=== PATIENT | female | born 1995 | race Caucasian/White ===

== ENCOUNTER 2019-08-03 20:44 | Emergency (ER) | payer SELFPAY ==
--- OUTSIDE RECORDS SUMMARY | 2019-08-03 20:46 | XMS REPORT | Summary of Care ---
Author Author [facility] - Health Organization [facility] Address Unknown Phone Unavailable Care Team Providers Care Bug Trimmer Name Role Phone Catherine Koch MSN PCP Reason for Visit * Reason Comments [employer] Exam Encounter Details Care Team Description Date Type Department Catherine Koch, MSN [address] [place] [address] Family planning counseling (Primary Dx); Well woman exam without gynecological exam; Screening examination for venereal disease; Dysuria; examination or test, negative result; Anxiety; Dysmenorrhea; Simple obesity 01/06/2019 Office Visit [facility] [address] [place] [address] Allergies No Known Allergiesdocumented as of this encounter (statuses as of 01/09/2019) Medications End Date Status Medication Sig Dispensed Refills Start Date Active Nitrofurantoin&Nit. Take 1 20 capsule 0 Macrocryst (MACROBID) 100 capsule by 9 mg capsuleIndications: mouth 2 (two) Dysuria times daily. 01/06/2019 Discontinued Nitrofurantoin&Nit. Take 1 20 capsule 0 Macrocryst (MACROBID) 100 capsule by 9 mg capsuleIndications: mouth 2 (two) Dysuria times daily for 10 days. 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 Never 01/06/2019 How many drinks containing alcohol do you have on Not asked a typical day when you are drinking? How often do you have six or more drinks on one Not asked occasion? Sex Assigned at Date Recorded Not on file Industry Job Start Date Occupation Not on file Not on file Not on file Travel End Travel History Travel Start No recent travel history available. documented as of this encounter Last Filed Vital Signs Reading Time Taken Comments Vital Sign 105/76 01/06/2019 9:04 AM CDT Blood Pressure 75 01/06/2019 9:04 AM CDT Pulse 36.2 C (97.1 F) 01/06/2019 9:04 AM CDT Temperature 18 01/06/2019 9:04 AM CDT Respiratory Rate - - Oxygen Saturation - - Inhaled Oxygen Concentration 79.8 kg (176 lb) 01/06/2019 9:04 AM CDT Weight 162.6 cm (5' 4") 01/06/2019 9:04 AM CDT Height 30.21 01/06/2019 9:04 AM CDT Body Mass Index documented in this encounter Patient Instructions * Patient Instructions* Catherine Koch MSN - 01/06/2019 8:15 AM CDT Wincher packet documented in this encounter Progress Notes * Catherine Koch MSN - 01/06/2019 8:15 AM CDT Chief complaint: Chief Complaint Patient presents with [employer] Exam [employer] Exam Patient is here for well woman visit and contraceptive management. Primary sympt oms comment: dysmenorrhea. This is a recurrent problem. The current episode star trinity more than 1 year ago. The problem has been unchanged. The pain is moderate. The problem affects both sides. She is not (Ectopic resulting in surgical intervention). She wears cotton underwear. Associated symptoms incl ude abdominal pain. Associated symptoms comments: R/t surgery . She has tried NSAIDs and oral narcotics for the symptoms. The treatment provid ed significant relief. It is unknown whether or not her partner has an STD. She uses abstinence (Undecided on BCM.) for contraception. Her menstrual history has been regular. Her past medical history is significant for an ectopic . Patient reports not sexually active. Pt denies human trafficking, current or past physical, sexual, or emotional abus e. Histories OB History Para Term AB Living 2 2 0 SAB TAB Ectopic Multiple Live Births 0 1 1 # Outcome Date GA Lbr Rodriguez/2nd Weight Sex Delivery Anes PTL Lv 2 Ectopic 1 TAB Past Medical History: Diagnosis Date Anxiety Dysmenorrhea 01/09/2019 Family History Problem Relation Age of Onset Arthritis Maternal Grandmother Cancer Maternal Grandmother High cholesterol Maternal Grandmother Diabetes Paternal Grandmother Cancer Paternal Grandfather Asthma NoFHx defects NoFHx Breast Cancer NoFHx Colon Cancer NoFHx Ovarian Cancer NoFHx Uterine Cancer NoFHx Depression NoFHx Genetic NoFHx Heart NoFHx Hypertension NoFHx Mental retardation NoFHx Neurological NoFHx Osteoporosis NoFHx Psychiatry NoFHx Other - see comments NoFHx Family Status Relation Name Status MGMo (Not Specified) Lung and throat PGMo (Not Specified) PGFa (Not Specified) lung and throat NoFHx (Not Specified) Past Surgical History: Procedure Laterality Date OTHER 12/31/2018 One tube was removed due to tubal Social History Socioeconomic History Marital status: Single Spouse name: Not on file Number of children: Not on file Years of education: Not on file Highest education level: Not on file Occupational History Not on file Social Needs Financial resource strain: Not on file Food insecurity: Worry: Not on file Inability: Not on file Transportation needs: Medical: Not on file Non-medical: Not on file Tobacco Use Smoking status: Never Smoker Smokeless tobacco: Never Used Substance and Sexual Activity Alcohol use: Never Frequency: Never Drug use: Never Sexual activity: Yes Partners: Male control/protection: Condom Lifestyle Physical activity: Days per week: Not on file Minutes per session: Not on file Stress: Not on file Relationships Social connections: Talks on phone: Not on file Gets together: Not on file Attends anabaptism service: Not on file Active member of club or organization: Not on file Attends meetings of clubs or organizations: Not on file Relationship status: Not on file Intimate partner violence: Fear of current or ex partner: Not on file Emotionally abused: Not on file Physically abused: Not on file Forced sexual activity: Not on file Other Topics Concern Not on file Social History Narrative Patient denies current or past Physical, sexual or emotional abuse, human traff icking. Social History Substance and Sexual Activity Sexual Activity Yes Partners: Male control/protection: Condom Labs No results found for any previous visit. Radiology No new radiology. Allergies Rosanne has No Known Allergies. Medications Rosanne has a current medication list which includes the following prescription(s ): nitrofurantoin&nit. macrocryst. Review of Systems Constitutional: Negative. HENT: Negative. Eyes: Negative. Respiratory: Negative. Breasts: Negative. Cardiovascular: Negative. Gastrointestinal: Positive for abdominal pain. Genitourinary: Positive for menstrual problem. Musculoskeletal: Negative. Skin: Negative. Neurological: Negative. Psychiatric/Behavioral: Negative. Endocrine: Endocrine negative BP 105/76 | Pulse 75 | Temp 36.2 C (97.1 F) (Oral) | Resp 18 | Ht 5' 4" (1.626 m) | Wt 176 lb (79.8 kg) | LMP 12/02/2018 | BMI 30.21 kg/m Pregravid BMI: Could not be calculated Physical Exam Vitals reviewed. Constitutional: She is oriented to person, place, and time. She appears well-dev eloped, well-nourished and well-groomed. Neck: No tenderness and no mass. No thyroid nodules and no thyromegaly palpated. Cardiovascular: Regular rate and rhythm. No gallop, no friction rub and no murmu r auscultated. No peripheral edema present. Pulmonary/Chest: Breath sounds clear to auscultation. Normal inspiratory effort. Abdominal: Abdomen is soft. No mass palpated. No tenderness present. There is no rigidity and no guarding. Neuro/Psychiatric: She has a normal mood and affect. She is oriented to person, place, and time. Skin: Skin normal. No lesion, no rash and no ulceration present. Genitourinary Comments: Pelvic exam deferred r/t surgery Breast: Right breast exhibits no mass, no nipple discharge and no tenderness. Le ft breast exhibits no mass, no nipple discharge and no tenderness. Breasts are s ymmetrical. Normal left breast and normal right breast Assessment/Plan Family planning counseling (primary encounter diagnosis) Comment: Undecided Plan: RTC for BCM Well woman exam without gynecological exam Comment: WWE Plan: CBC WITH DIFF, RUBELLA SCREEN IGG, HIV 1/2 AG-AB WITH REFLEX, GALV ONLY - SYPHILIS IGG/IGM, GLYCOSYLATED HEMOGLOBIN (A1C), GC & CHLAMYDIA AMPLIFIED ASSAY, URINE CULTURE, CBC WITH DIFFERENTIAL RTC for pap & PRN Screening examination for venereal disease Comment: Desires Plan: HIV 1/2 AG-AB WITH REFLEX, GALV ONLY - SYPHILIS IGG/IGM, GC & CHLAMYDIA AMPLIFIED ASSAY Dysuria Comment: Reports sx Plan: URINE CULTURE, Nitrofurantoin&Nit. Macrocryst (MACROBID) 100 mg capsule, DISCONTINUED: Nitrofurantoin&Nit. Macrocryst (MACROBID) 100 mg capsule examination or test, negative result Comment: UPT - Plan: POCT TEST Anxiety Comment: See hx. Stable now Plan: F/U PRN Dysmenorrhea Comment: Reports sx Plan: Ibuprofen 600 mg po q 6 hrs prn pain Simple obesity Comment: The patient is asked to make an attempt to improve diet and exercise pa tterns to aid in medical management of this problem. Plan: Educational material given. Zika travel precautions and need for mosquito repellant discussed Discussed treatment options. Medications as ordered. Reviewed patient instructions and provided printed copy. This visit did not involve counseling and coordination that comprised more than 50% of the visit time. Catherine Koch, RNC, NP * Dania Renee LVN - 01/06/2019 8:15 AM CDT Patient in clinic for WWE. Patient reports desires to get healthy to get pregnan t. Pt had an ectopic 12/31/2018, Pt states having problems passing uri ne after the surgery. Currently using condoms method. Last had sex 12/01/2018. Last Tdap and PPD in 0 01/2018, Pt states she got the HPV vaccines. Patient reports this is her first WWE + Pap. Pt denies current or past physical, sexual, or emotional abuse, human traffickin g. Desires std testing documented in this encounter Plan of Treatment Care Team Description Date Type Specialty HeroCatherine paredes, MSN [address], [place] [id number] 04/07/2019 Office Visit [facility] Health Maintenance Due Date Last Done Comments INFLUENZA VACCINE 01/30/2019 PAP SMEAR 07/12/2019 Postponed from 2015 (Patient Ill Today) CHLAMYDIA SCREENING 01/07/2020 01/06/2019 VARICELLA VACCINES (1 of 01/07/2020 Postponed from 2007 2 - 13+ 2-dose series) (Insurance / Financial) DTaP,Tdap,and Td Vaccines 02/15/2028 02/14/2018 (2 - Td) HPV VACCINES Completed 10/30/2008, 07/30/2008, 06/01/2008 PNEUMOCOCCAL 0-64 YEARS Aged Out No longer eligible based COMBINED SERIES on patient's age to complete this topic documented as of this encounter Procedures Comments Procedure Name Priority Date/Time Associated Diagnosis GC & CHLAMYDIA AMPLIFIED Routine 01/06/2019 Screening examination for ASSAY 10:55 AM CDT venereal disease Well woman exam without gynecological exam URINE CULTURE Routine 01/06/2019 Dysuria 10:55 AM CDT Well woman exam without gynecological exam GALV ONLY - SYPHILIS Routine 01/06/2019 Screening examination for IGG/IGM 10:54 AM CDT venereal disease Well woman exam without gynecological exam HIV 1/2 AG-AB WITH REFLEX Routine 01/06/2019 Screening examination for 10:54 AM CDT venereal disease Well woman exam without gynecological exam CBC WITH DIFFERENTIAL Routine 01/06/2019 Well woman exam without 10:54 AM CDT gynecological exam RUBELLA SCREEN IGG Routine 01/06/2019 Well woman exam without 10:54 AM CDT gynecological exam GLYCOSYLATED HEMOGLOBIN Routine 01/06/2019 Well woman exam without (A1C) 10:54 AM CDT gynecological exam CBC WITH DIFF Routine 01/06/2019 Well woman exam without 10:54 AM CDT gynecological exam POCT TEST Routine 01/06/2019 examination or 10:25 AM CDT test, negative result documented in this encounter Results * URINE CULTURE (01/06/2019 10:55 AM CDT) URINE CULTURE ESCHERICHIA COLI [facility] Specimen Urine - URINE, CLEAN CATCH Antibiotic Method Susceptibility Organism Amoxacillin/Clavulanic acid SUSCEPTIBILITY TESTING >=32: Resistant Escherichia coli Ampicillin SUSCEPTIBILITY TESTING >=32: Resistant Escherichia coli Ampicillin/Sulbactam SUSCEPTIBILITY TESTING 16: Intermediate Escherichia coli Cefazolin SUSCEPTIBILITY TESTING 8: Susceptible Escherichia coli Ceftriaxone SUSCEPTIBILITY TESTING <=1: Susceptible Escherichia coli Ertapenem SUSCEPTIBILITY TESTING <=0.5: Susceptible Escherichia coli Gentamicin SUSCEPTIBILITY TESTING <=1: Susceptible Escherichia coli Levofloxacin SUSCEPTIBILITY TESTING <=0.12: Susceptible Escherichia coli Nitrofurantoin SUSCEPTIBILITY TESTING <=16: Susceptible Escherichia coli Piperacillin/Tazobactam SUSCEPTIBILITY TESTING <=4: Susceptible Escherichia coli Trimethoprim/Sulfamethoxazole SUSCEPTIBILITY TESTING <=20: Susceptible Escherichia coli Comment: Nitrofurantoin is not recommended for use in treating pyelonephritis or systemic disease. Performing Organization Address City/[facility]/Zipcode Phone Number [facility] CLIA: [id number], [address] [place] [address] [facility] * GC & CHLAMYDIA AMPLIFIED ASSAY (01/06/2019 10:55 AM CDT) Pathologist [facility] C. trachomatis CHLAMYDIA TRACHOMATIS DNA (A) Negative [facility] Nucleic Acid SERVICES N. gonorrhoeae NEGATIVE Negative [facility] Nucleic Acid SERVICES Specimen Urine - URINE, UNSPECIFIED SOURCE Performing Organization Address City/State/Zipcode Phone Number [facility] CLIA: [id number], [address] [place] [phone] [facility] * CBC WITH DIFFERENTIAL (01/06/2019 10:54 AM CDT) WBC 6.77 4.30 - 11.10 [facility] 10*3/L SERVICES RBC 3.76 (L) 3.93 - 5.25 10*6/L [facility] HGB 11.0 (L) 11.6 - 15.0 g/dL [facility] HCT 35.6 (L) 35.7 - 45.2 % [facility] MCV 94.7 80.6 - 95.5 fL [facility] MCH 29.3 25.9 - 32.8 pg [facility] MCHC 30.9 (L) 31.6 - 35.1 g/dL [facility] RDW-SD 43.6 39.0 - 49.9 fL [facility] RDW-CV 12.5 12.0 - 15.5 % [facility] PLT 303 166 - 358 10*3/L [facility] MPV 10.7 9.5 - 12.9 fL [facility] NRBC/100 WBC 0.0 0.0 - 10.0 /100 WBCs [facility] NRBC x10^3 <0.01 10*3/L [facility] GRAN MAT (NEUT) 66.3 % [facility] % SERVICES IMM GRAN % 0.30 % [facility] LYMPH % 23.5 % [facility] MONO % 5.9 % [facility] EOS % 3.1 % [facility] BASO % 0.9 % [facility] GRAN MAT 4.49 1.88 - 7.09 10*3/uL [facility] x10^3(ANC) SERVICES IMM GRAN x10^3 <0.03 0.00 - 0.06 10*3/uL [facility] LYMPH x10^3 1.59 1.32 - 3.29 10*3/uL [facility] MONO x10^3 0.40 0.33 - 0.92 10*3/uL [facility] EOS x10^3 0.21 0.03 - 0.39 10*3/uL [facility] BASO x10^3 0.06 0.01 - 0.07 10*3/uL [facility] Specimen Blood - ARM, LEFT Performing Organization Address City/State/Zipcode Phone Number [facility] CLIA: [id number], [address] [place] [address] [facility] * GLYCOSYLATED HEMOGLOBIN (A1C) (01/06/2019 10:54 AM CDT) HGB A1C 4.6 4.0 - 6.0 % [facility] Specimen Blood - ARM, LEFT Performing Organization Address City/[facility] Phone Number [facility] CLIA: [id number], [address] [place] [phone] [facility] * GALV ONLY - SYPHILIS IGG/IGM (01/06/2019 10:54 AM CDT) Syphilis Non-reactive Non-reactive [facility] IgG/IgM SERVICES Specimen Blood - ARM, LEFT Narrative Performed At Non-reactive - No serologic evidence of T. pallidum infection. Cannot exclude [facility] incubating or early syphilis. Submit a second specimen in 2-4 weeks if syphilis SERVICES is clinically suspected. Equivocal - Further testing to follow. Reactive - Further testing to follow. Performing Organization Address [facility] Phone Number [facility] CLIA: [id number], [address] [place] [phone] [facility] * HIV 1/2 AG-AB WITH REFLEX (01/06/2019 10:54 AM CDT) HIV 1/2 Ag-Ab Negative Negative [facility] with Reflex SERVICES HIV 0.07 [facility] Semi-quantitati SERVICES ve Specimen Blood - ARM, LEFT Narrative Performed At Non-reactive for HIV-1 antigen and HIV-1/HIV-2 antibodies.No laboratory [facility] evidence of HIV infection.Repeat in 2-4 weeks if acute HIV infection is SERVICES suspected. Performing Organization Address [facility] Phone Number [facility] CLIA: [id number], [address] [place] [phone] [facility] * RUBELLA SCREEN IGG (01/06/2019 10:54 AM CDT) Rubella screen Positive Negative [facility] IgG SERVICES Specimen Blood - ARM, LEFT Narrative Performed At Positive - Indicates the patient was exposed to Rubella through infection or [facility] vaccination. SERVICES Negative - Indicates the patient could be susceptible to Rubella infection. Equivocal - A second specimen should be sent. Performing Organization Address City/State/Zipcode Phone Number [facility] CLIA: [id number], [address] [place] [phone] [facility] * POCT TEST (01/06/2019 10:25 AM CDT) POCT PREG Negative On board Yes controls acceptable with C Line POCT PREG LOT # POCT PREG TEST DATE Specimen Urine - URINE, CLEAN CATCH documented in this encounter Visit Diagnoses Diagnosis Family planning counseling - Primary Other general counseling and advice for contraceptive management Well woman exam without gynecological exam Routine general medical examination at a health care facility Screening examination for venereal disease Dysuria examination or test, negative result Anxiety Anxiety state, unspecified Dysmenorrhea Simple obesity Obesity, unspecified documented in this encounter Insurance Type Payer Benefit Subscriber ID Effective Phone Address Plan / Dates Group Medicaid [facility] [place] [facility] xxxxxxxxx 2018-P [phone] [address] [place] [address] documented as of this encounter
--- OUTSIDE RECORDS SUMMARY | 2019-08-03 20:46 | XMS REPORT ---
[facility] Address Unknown Phone Unavailable Care Team Providers Care Supervisor Counseling And Guidance Name Role Phone Unavailable Unavailable Payers Payer Name Policy Type Policy Number Effective Date Expiration Date Problems This patient has no known problems. Allergies, Adverse Reactions, Alerts Allergy Name Allergy Type Status Severity Reaction(s) Onset Date Inactive Date Treating Clinician Comments No Known Allergies DA Active U 2017-03-05 00:00:00 Medications This patient has no known medications. Results Test Description Test Time Test Comments Text Results Atomic Results Result Comments Manual Diff 2019-01-01 13:44:03 Segs Man (test code=Segs Man) 76 % Lymph Man (test code=Lymph Man) 18 % Monocyte Man (test code=Monocyte Man) 5 % Eos Man (test code=Eos Man) 1 % Basophil Man (test code=Basophil Man) 0 % Neut Man Abs (test code=Neut Man Abs) 7.6 2.7-7.3 Lymph Man Abs (test code=Lymph Man Abs) 1.8 0.8-3.5 [place] Man Abs (test code=[place] Man Abs) 0.5 0.3-0.9 Eos Man Abs (test code=Eos Man Abs) 0.1 0.0-0.3 Baso Man Abs (test code=Baso Man Abs) 0.0 0.0-0.1 RBC Morph (test code=RBC Morph) As Indicated Normal Anisocyte (test code=Anisocyte) 1+ Plt Estimation (test code=Plt Estimation) Normal Normal Complete Blood Count with Man [id number] 12:42:23* Test Item Value Reference Range Comments WBC (test code=WBC) 10.0 x10 4.8-10.8 RBC (test code=RBC) 3.47 x10 4.20-5.50 Hgb (test code=Hgb) 10.5 g/dL 12.0-16.0 Hct (test code=Hct) 31.3 % 35.0-47.0 MCV (test code=MCV) 90.1 fL 80.0-95.0 MCH (test code=MCH) 30.4 pg 26.0-32.0 MCHC (test code=MCHC) 33.7 g/dL 31.0-36.0 RDW (test code=RDW) 13.3 % 11.5-14.5 Platelets (test code=Platelets) 226 x10 140-440 MPV (test code=MPV) 8.9 fL 7.5-11.2 US OB [id number] 01:41:47Patient: SCOTT ROSSI Date/Time01/01/2019 01:07 CDTReason for Exampelvic pain;Other (please specify)ReportOrdering physician: Alycia BarbaINDICATION: , lower pelvic pain with vaginal bleeding, beta hCG 391COMPARISON: NoneTECHNIQUE: Grayscale and Doppler images of the pelvis were performed via an endovaginal approach.FINDINGS: No intrauterine gestation is appreciated. The endometrium measures 5 mm. The uterus measures 8.1 x 3.8 x 4.5 cm. The right ovary measures 3.6 x 2.1 x 3.0 cm and the left ovary measures 4.2 x 2.9 x 3.0 cm. There is normal color-flow in the ovaries bilaterally, with normal vascular waveforms. There is a large amount of hemorrhagic fluid in the right adnexa and posterior cul-de-sac.IMPRESSION:No intrauterine gestation. Visualization would not typically be expected at a beta hCG of 391.Large amount of hemorrhagic free fluid in the right adnexa and posterior cul-de-sac. Ectopic gestation cannot be excluded, but this could also be seen in the setting of a ruptured hemorrhagic cyst.RL: [id number]: [id number] findings were discussed with Dr. Rowland, who expressed understanding, on 01/01/2019 at 0 147 Final Dictated by: Contributor_system, PSCRIBE_CTZDictated DT/TM: 01/01/2019 1 :50 amSigned by: MD Gregg, Stephani GSigned (Electronic Signature): 2018 1:41 am2C [id number] 01:33:36* Test Item Value Reference Range Comments Methodology (test code=Methodology) Ortho-Vision(OV) SC1 (test code=SC1) 0 SC2 (test code=SC2) 0 Antibody Screen (2C) (test code=Antibody Screen (2C)) Negative ABSC [id number] 01:16:04* Test Item Value Reference Range Comments Previous History (test code=Previous History) No Prev History BBID (test code=BBID) [id number] Methodology (test code=Methodology) Ortho-Vision(OV) Anti-A (test code=Anti-A) 0 Anti-B (test code=Anti-B) 0 Anti-D (test code=Anti-D) 4+ DCon (test code=DCon) 0 A1 (test code=A1) 4+ B cells (test code=B cells) 4+ ABORh (test code=ABORh) O POS Automated [id number] 23:01:49* Test Item Value Reference Range Comments Neutro Auto (test code=Neutro Auto) 78.7 % Lymph Auto (test code=Lymph Auto) 15.0 % [place] Auto (test code=[place] Auto) 4.8 % Eos, Auto (test code=Eos, Auto) 0.9 % Basophil Auto (test code=Basophil Auto) 0.6 % Neutro Absolute (test code=Neutro Absolute) 10.7 x10 2.7-7.3 Lymph Absolute (test code=Lymph Absolute) 2.0 x10 0.8-3.5 [place] Absolute (test code=[place] Absolute) 0.7 x10 0.3-0.9 Eos Absolute (test code=Eos Absolute) 0.1 x10 0.0-0.3 Baso Absolute (test code=Baso Absolute) 0.1 x10 0.0-0.1 Complete Blood Count with [id number] 23:01:48* Test Item Value Reference Range Comments WBC (test code=WBC) 13.7 x10 4.8-10.8 RBC (test code=RBC) 3.90 x10 4.20-5.50 Hgb (test code=Hgb) 11.7 g/dL 12.0-16.0 Hct (test code=Hct) 34.9 % 35.0-47.0 MCV (test code=MCV) 89.5 fL 80.0-95.0 RDW (test code=RDW) 13.6 % 11.5-14.5 MCHC (test code=MCHC) 33.4 g/dL 31.0-36.0 MCH (test code=MCH) 29.9 pg 26.0-32.0 Platelets (test code=Platelets) 243 x10 140-440 MPV (test code=MPV) 8.6 fL 7.5-11.2 Slide Review (test code=Slide Review) Auto Result created by GL_SET_SLIDE_REVIEW_AUTO Beta HCG [id number] 22:43:15* Test Item Value Reference Range Comments HCG, Beta Quantitative (test code=HCG, Beta Quantitative) 391 mIU/L 0-5 Gestational Age Approximate HCG (mIU/ml)Negative <50.2 weeks 5-50 1-2 weeks 50-5002-3 weeks 100-48427-3 weeks 500-10,0004-5 weeks 1,000-50,0005-6 weeks 10,000-100,0006-8 weeks 15,000-200,0002-3 months 10,000- 100,000< 40 yrs 0-5> 40 yrs 3-9Rizf-rzmjmnhodt 0-11 POC Urine [id number] 21:54:54* Test Item Value Reference Range Comments Urine Preg POC (test code=Urine Preg POC) Positive Negative Test results should be confirmed using a serum sample prior to the performance of any critical medical procedure. Internal QC (test code=Internal QC) Acceptable Acceptable Urinalysis with Culture, if [id number] 21:52:12* Test Item Value Reference Range Comments UA Color (test code=UA Color) Yellow Yellow UA Appear (test code=UA Appear) Clear Clear UA pH (test code=UA pH) 5.5 UA Spec Grav (test code=UA Spec Grav) 1.030 SGU 1.005-1.030 UA Glucose (test code=UA Glucose) Negative Negative UA Bili (test code=UA Bili) Negative Negative UA Ketones (test code=UA Ketones) Negative Negative UA Blood (test code=UA Blood) 2+ Negative UA Protein (test code=UA Protein) Negative Negative UA Urobilinogen (test code=UA Urobilinogen) 1.0 EU/dL >0.2 UA Nitrite (test code=UA Nitrite) Negative Negative UA Leuk Est (test code=UA Leuk Est) Negative Negative UA Micro Ind? (test code=UA Micro Ind?) Indicated Not Indicated Result created by rule GL_SET_UA_MICRO_IND Urinalysis [id number] 21:52:12* Test Item Value Reference Range Comments UA WBC (test code=UA WBC) 0-5 /HPF 0-5 UA RBC (test code=UA RBC) 0-4 /HPF 0-4 UA Bacteria (test code=UA Bacteria) 1+ /HPF Negative UA Squam Epithelial (test code=UA Squam Epithelial) 74-200 /LPF 0-20 UA Hyal Cast (test code=UA Hyal Cast) 1-6 /LPF 1-6
--- OUTSIDE RECORDS SUMMARY | 2019-08-03 20:46 | XMS REPORT | Summary of Care ---
Author Author [facility] Organization [facility] Address Unknown Phone Unavailable Care Team Providers Care Asian Art Curator Name Role Phone Adelia Sen PCP Reason for Visit * Reason Comments Other Encounter Details Care Team Description Date Type Department Adelia Sen WHNP [address] [address] Surveillance of previously prescribed contraceptive pill (Primary Dx); Screen for STD (sexually transmitted disease); Chlamydia trachomatis infection of lower genitourinary sites; Dysuria; Cervical smear, as part of routine gynecological examination 07/04/2019 Office Visit [place] [address] [place] [address] Allergies No Known Allergiesdocumented as of this encounter (statuses as of 07/06/2019) Medications End Date Status Medication Sig Dispensed Refills Start Date Active norgestimate-ethinyl Take 1 tablet 4 Package 0 estradiol 0.18/0.215/0.25 by mouth 0 mg-25 mcg daily. tabletIndications: Surveillance of previously prescribed contraceptive pill 07/04/2019 Discontinued Nitrofurantoin&Nit. Take 1 20 capsule 0 Macrocryst (MACROBID) 100 capsule by 9 mg capsuleIndications: mouth 2 (two) Dysuria times daily. documented as of this encounter (statuses as of 07/06/2019) Active Problems Problem Noted Date Chlamydia trachomatis infection of lower genitourinary sites 01/09/2019 Anxiety 01/09/2019 Dysmenorrhea 01/09/2019 Simple obesity 01/09/2019 documented as of this encounter (statuses as of 07/06/2019) Immunizations Name Administration Dates Next Due HPV [...] Signs Reading Time Taken Comments Vital Sign 124/79 07/04/2019 8:41 AM TOOL MACHINE SETUP OPERATOR Blood Pressure 68 07/04/2019 8:41 AM TOOL MACHINE SETUP OPERATOR Pulse 37 C (98.6 F) 07/04/2019 8:41 AM TOOL MACHINE SETUP OPERATOR Temperature 16 07/04/2019 8:41 AM TOOL MACHINE SETUP OPERATOR Respiratory Rate - - Oxygen Saturation - - Inhaled Oxygen Concentration 83.5 kg (184 lb) 07/04/2019 8:41 AM TOOL MACHINE SETUP OPERATOR Weight 152.4 cm (5') 07/04/2019 8:41 AM TOOL MACHINE SETUP OPERATOR Height 35.94 07/04/2019 8:41 AM TOOL MACHINE SETUP OPERATOR Body Mass Index documented in this encounter Patient Instructions * Patient Instructions* Antonio Alicia LVN - 07/04/2019 8:15 AM TOOL MACHINE SETUP OPERATOR How Control Works control prevents by preventing conception. Some methods prevent an egg from maturing. Some keep the sperm and egg from meeting. And some methods work in both ways. Preventing ovulation Certain hormones help prevent an egg from maturing and being released. Hormone m ethods include: control pills Skin patches Contraceptive vaginal rings Injections Preventing sperm and egg from meeting Methods that prevent the sperm and egg from joining include: Barrier methods, such as the condom, the diaphragm, and the cervical cap Spermicide The IUD (intrauterine device) Sterilization Natural family planning Some types of hormone methods Thiago hagan reviewed this educational content on 07/30/201619996345-8416 [employer]. [address] [place] [address] 1367 7. All rights reserved. This information is not intended as a substitute for pro fessional medical care. Always follow your healthcare professional's instruction s. Control: The Pill control pills contain hormones that help prevent . The pills are prescribed by your healthcare provider. There are many types of control pi lls available. If you have side effects from one type of pill, tell your healthc are provider. He or she may be able to prescribe a pill that works better for yo u. rates Talk to your healthcare provider about the effectiveness of this control m ethod. Using the pill Take one pill daily. Take it at around the same time each day. Follow your healthcare providers guidelines on when to start your first pa ck of pills. You may need to use another form of control for a week or mor e after you start. Know what to do if you forget to take a pill. (Consult your healthcare provid er or check the package.) If you miss more than one pill, you may need to use a backup method of control for a week or more. Pros Low rate No interruption to sex Easy to use Can help make periods more regular May lower your risk of ovarian cysts and certain cancers May decrease menstrual cramps, menstrual flow, and acne Cons Does not protect against sexually transmittedinfection (STIs) Requires taking a pill on time each day May not work as well when taken with certain other medicines (check with your pharmacist) May cause side effects such as nausea, irregular bleeding, headaches, breast tenderness, fatigue, or mood changes (these often go away within 3 months) May increase the risk of blood clots,heart attack, and stroke The pill may not be for you The pill may not be for you if: You are a smoker and over age 35 You havehigh blood pressureor gallbladder, liver, cerebrovascular or he art disease You have diabetes, migraines, blood clot in the vein or artery, lupus, depres analia, certain lipid disorders, or take medicines that interfere with the pill In these cases, discuss the risks with your healthcare provider. Knowable last reviewed this educational content on 07/30/201619999678-4725 [employer] [address] [place] [address] 5166 7. All rights reserved. This information is not intended as a substitute for pro fessional medical care. Always follow your healthcare professional's instruction s. C ST documented in this encounter Progress Notes * Adelia Sen, NP - 07/04/2019 8:15 AM TOOL MACHINE SETUP OPERATOR Chief complaint: Chief Complaint Patient presents with Other Had chlamydia but did not take meds right did drink after taking Wants to start oc Needs pap BARREL RIFLER Exam Reason for Visit: chlamydia fu. The patient is experiencing no pain. She is not . She wears cotton underwear. She uses oral contraceptives for contracep tion. Her menstrual history has been regular. Her past medical history is signif icant for an STD. There is no history of PID or vaginosis. Patient reports sexua lly active. Histories OB History Para Term AB Living 2 2 0 SAB TAB Ectopic Multiple Live Births 0 1 1 # Outcome Date GA Lbr Rodriguez/2nd Weight Sex Delivery Anes PTL Lv 2 Ectopic 1 TAB Past Medical History: Diagnosis Date Anxiety Dysmenorrhea 01/09/2019 STD (sexually transmitted disease) Family History Problem Relation Age of Onset [...] file Gets together: Not on file Attends anglican service: Not on file Active member of [...] Activity Yes Partners: Male control/protection: Condom Labs Labs are pending. Radiology No new radiology. Allergies Rosanne has No Known Allergies. Medications Rosanne has a current medication list which includes the following prescription(s ): norgestimate-ethinyl estradiol. Review of Systems Constitutional: Negative. Breasts: Negative. Gastrointestinal: Negative. Genitourinary: Negative. Skin: Negative. Neurological: Negative. Psychiatric/Behavioral: Negative. BP 124/79 | Pulse 68 | Temp 37 C (98.6 F) | Resp 16 | Ht 5' (1.524 m) | Wt 184 lb (83.5 kg) | LMP 06/15/2019 | BMI 35.94 kg/m Pregravid BMI: Could not be calculated Physical Exam Vitals reviewed. Constitutional: She is oriented to person, place, and time. She appears well-dev eloped and well-nourished. Pulmonary/Chest: Normal inspiratory effort. Neuro/Psychiatric: She has a normal mood and affect. She is oriented to person, place, and time. Skin: Skin normal. No lesion, no rash and no ulceration present. External genitalia: Normal external genitalia appropriate for age. Normal hair d istribution. No labial lesion. Vagina:No lesion inspected. Normal estrogen effect. Normal support. No abnormal vaginal discharge found. Cervix: Normal cervix. No lesion. No tenderness and no discharge present. Anus/perineum: Normal perineum. Assessment/Plan Surveillance of previously prescribed contraceptive pill (primary encounter zuly gnosis) Comment: candidate for Plan: norgestimate-ethinyl estradiol 0.18/0.215/0.25 mg-25 mcg tablet Screen for STD (sexually transmitted disease) Comment: requested Plan: HIV 1/2 AG-AB WITH REFLEX, [facility] ONLY - SYPHILIS IGG/IGM, GC & CHLAMYDIA AMPLIFIED ASSAY, GC & CHLAMYDIA AMPLIFIED ASSAY, GALV ONLY - SYPHILIS IGG/IGM, HIV 1/2 AG-AB WITH REFLEX Chlamydia trachomatis infection of lower genitourinary sites Comment: Plan: cristine Dysuria Comment: reports Plan: URINE CULTURE Cervical smear, as part of routine gynecological examination Comment: pap today Plan: PAP Smear-Liquid Based, PAP Smear-Liquid Based, LAB ONLY PAP SMEAR-LIQUID BASED, LAB ONLY PAP SMEAR-LIQUID BASED This visit did not involve counseling and coordination that comprised more than 50% of the visit time. MACHINE SETUP OPERATOR * Antonio Alicia LVN - 07/04/2019 8:15 AM TOOL MACHINE SETUP OPERATOR Dispensed 4 pack of Tri Lo Sprintec, Lot [id number], Exp- 05/20, Cont- 878-L Educated patient on importance of dispensing pills properly and when to use a ba ck up method. Discussed the need to use a back up method for 1 month if this is initial dose. Patient to RTC in 3 months for next refill. Patient verbalized understanding and has no questions. C ST * Sonya Seay MA - 07/04/2019 8:15 AM TOOL MACHINE SETUP OPERATOR Patient presents for first pap. LMP 06/15/2019. Last intercourse 2 weeks ago. Is not on any control now. Would like to discuss options. States she was sta rted on RX for chlamydia and UTI but did not take Rx correctly, she completed co urse but skipped a few days as she started back drinking due to depression. Stat es Still has vaginal odor but no discharge. Still has odor in urine. MACHINE SETUP OPERATOR documented in this encounter Plan of Treatment Date/Time Name Type Priority Associated Diagnoses 07/04/2019 9:34 AM TOOL MACHINE SETUP OPERATOR LAB ONLY PAP SMEAR-LIQUID LAB Routine Cervical smear, as part BASED of routine gynecological examination Order Schedule Name Type Priority Associated Diagnoses Expected: 07/05/2019, Expires: 07/05/2020 LAB ONLY PAP SMEAR-LIQUID LAB Routine Cervical smear, as part BASED of routine gynecological examination Health Maintenance Due Date Last Done Comments PAP SMEAR 07/12/2019 Postponed from 2015 (Patient Ill Today) VARICELLA VACCINES (1 of 01/07/2020 Postponed from 1995 2 - 2-dose childhood (Insurance / Financial) series) INFLUENZA VACCINE (#1) 2020 Postponed from 01/30/2019 (Refused) DTaP,Tdap,and Td Vaccines 02/15/2028 02/14/2018 (2 - Td) HPV VACCINES Completed 10/30/2008, 07/30/2008, 06/01/2008 PNEUMOCOCCAL 0-64 YEARS Aged Out No longer eligible based COMBINED SERIES on patient's age to complete this topic documented as of this encounter Procedures Comments Procedure Name Priority Date/Time Associated Diagnosis [facility] ONLY - SYPHILIS Routine 07/04/2019 Screen for STD (sexually IGG/IGM 9:34 AM TOOL MACHINE SETUP OPERATOR transmitted disease) PAP SMEAR-LIQUID BASED-CP Routine 07/04/2019 Cervical smear, as part 9:34 AM TOOL MACHINE SETUP OPERATOR of routine gynecological examination HIV 1/2 AG-AB WITH REFLEX Routine 07/04/2019 Screen for STD (sexually 9:34 AM TOOL MACHINE SETUP OPERATOR transmitted disease) GC & CHLAMYDIA AMPLIFIED Routine 07/04/2019 Screen for STD (sexually ASSAY 9:34 AM TOOL MACHINE SETUP OPERATOR transmitted disease) URINE CULTURE Routine 07/04/2019 Dysuria 9:34 AM TOOL MACHINE SETUP OPERATOR documented in this encounter Results * GC & CHLAMYDIA AMPLIFIED ASSAY (07/04/2019 9:34 AM TOOL MACHINE SETUP OPERATOR) C. trachomatis Negative Negative [facility] Nucleic Acid SERVICES N. gonorrhoeae Negative Negative [facility] Nucleic Acid SERVICES Specimen Swab - CERVIX Performing Organization Address City/State/Zipcode Phone Number [facility] CLIA: [id number], [address] [place] [address] [facility] * PAP Smear-Liquid Based (07/04/2019 9:34 AM TOOL MACHINE SETUP OPERATOR) Specimen Swab - CERVIX Performing Organization Address City/State/Zipcode Phone Number [facility] CLIA: [id number], [address] [place] [phone] [facility] * URINE CULTURE (07/04/2019 9:34 AM TOOL MACHINE SETUP OPERATOR) URINE CULTURE 10,000 - 100,000 CFU/mL mixed [facility] aerobic organisms - suggests SERVICES endogenous microbial contamination Specimen Urine - URINE, CLEAN CATCH Performing Organization Address City/[facility] Phone Number [facility] CLIA: [id number], [address] [place] [phone] [facility] * GAL[facility] ONLY - SYPHILIS IGG/IGM (07/04/2019 9:34 AM TOOL MACHINE SETUP OPERATOR) Syphilis Non-reactive Non-reactive [facility] IgG/IgM SERVICES Specimen Blood - ARM, LEFT Narrative Performed At Non-reactive - No serologic evidence of T. pallidum infection. Cannot exclude [facility] incubating or early syphilis. Submit a second specimen in 2-4 weeks if syphilis SERVICES is clinically suspected. Equivocal - Further testing to follow. Reactive - Further testing to follow. Performing Organization Address [facility] Phone Number [facility] CLIA: [id number], [address] [place] [phone] [facility] * HIV 1/2 AG-AB WITH REFLEX (07/04/2019 9:34 AM TOOL MACHINE SETUP OPERATOR) HIV 1/2 Ag-Ab Negative Negative [facility] with Reflex SERVICES HIV 0.07 [facility] Semi-quantitati SERVICES ve Specimen Blood - ARM, LEFT Narrative Performed At Non-reactive for HIV-1 antigen and HIV-1/HIV-2 antibodies. No laboratory [facility] evidence of HIV infection. Repeat in 2-4 weeks if acute HIV infection is SERVICES suspected. Performing Organization Address City/[facility] Phone Number [facility] CLIA: [id number], [address] [place] [phone] [facility] documented in this encounter Visit Diagnoses Diagnosis Surveillance of previously prescribed contraceptive pill - Primary Screen for STD (sexually transmitted disease) Screening examination for venereal disease Chlamydia trachomatis infection of lower genitourinary sites Dysuria Cervical smear, as part of routine gynecological examination Screening for malignant neoplasm of the cervix documented in this encounter Insurance Type Payer Benefit Subscriber ID Effective Phone Address Plan / Dates Group Medicaid [facility] [place] [facility] xxxxxxxxx 2018-P [phone] [address] [place] [address] documented as of this encounter"
--- OUTSIDE RECORDS SUMMARY | 2019-08-03 20:46 | XMS REPORT | Summary of Care ---
Author Author [facility] - Health Organization [facility] - Health Address Unknown Phone Unavailable Care Team Providers Care Client Service Executive Name Role Phone Catherine Koch MSN PCP Encounter Details Care Team Description Date Type Department Doctor Unassigned, [place] [address] [place] [address] 01/06/2019 Orders Only [facility] [address] [place] [address] Allergies Not on Filedocumented as of this encounter (statuses as of 01/06/2019) Medications Not on filedocumented as of this encounter (statuses as of 01/06/2019) Active Problems Not on filedocumented as of this encounter (statuses as of 01/06/2019) Social History Date Tobacco Use Types Packs/Day Years Used Never Assessed Sex Assigned at Date Recorded Not on file Industry Job Start Date Occupation Not on file Not on file Not on file Travel End Travel History Travel Start No recent travel history available. documented as of this encounter Last Filed Vital Signs Not on filedocumented in this encounter Plan of Treatment Health Maintenance Due Date Last Done Comments VARICELLA VACCINES (1 of 2007 2 - 13+ 2-dose series) HPV VACCINES (1 - Female 2009 3-dose series) CHLAMYDIA SCREENING 2010 DTaP,Tdap,and Td Vaccines 2013 (1 - Tdap) PAP SMEAR 2015 INFLUENZA VACCINE 01/30/2019 PNEUMOCOCCAL 0-64 YEARS Aged Out No longer eligible based COMBINED SERIES on patient's age to complete this topic documented as of this encounter Procedures Comments Procedure Name Priority Date/Time Associated Diagnosis ASSIGNMENT OF BENEFITS Routine 01/06/2019 8:43 AM CDT documented in this encounter Results Not on filedocumented in this encounter Insurance Type Payer Benefit Subscriber ID Effective Phone Address Plan / Dates Group Medicaid [id number] xxxxxxxxx 2018-P [phone] [address] [place] [address] documented as of this encounter
--- OUTSIDE RECORDS SUMMARY | 2019-08-03 20:46 | XMS REPORT | Summary of Care ---
Author Author [facility] - Health Organization [facility] - Health Address Unknown Phone Unavailable Care Team Providers Care Technical Services Rep Name Role Phone Adelia Sen PCP Reason for Visit * Reason Comments Other Encounter Details Care Team Description Date Type Department Adelia Sen [facility] [address] [address] Encounter for surveillance of other contraceptive (Primary Dx); Chlamydia trachomatis infection of lower genitourinary sites 01/12/2019 Office Visit [facility] [address] [place] [address] Allergies No Known Allergiesdocumented as of this encounter (statuses as of 01/12/2019) Medications End Date Status Medication Sig Dispensed Refills Start Date Active Nitrofurantoin&Nit. Take 1 20 capsule 0 Macrocryst (MACROBID) 100 capsule by 9 mg capsuleIndications: mouth 2 (two) Dysuria times daily. 01/12/2019 Active azithromycin (ZITHROMAX) Take 2 2 tablet 0 500 mg tabletIndications: tablets by 9 Chlamydia trachomatis mouth once infection of lower now for 1 genitourinary sites dose. 01/12/2019 Discontinued azithromycin (ZITHROMAX) Take 2 2 tablet 0 500 mg tabletIndications: tablets by 9 Chlamydia trachomatis mouth daily. infection of lower genitourinary sites documented as of this encounter (statuses as of 01/12/2019) Active Problems Problem Noted Date Chlamydia trachomatis infection of lower genitourinary sites 01/09/2019 Anxiety 01/09/2019 Dysmenorrhea 01/09/2019 Simple obesity 01/09/2019 documented as of this encounter (statuses as of 01/12/2019) Immunizations Name Administration Dates Next Due HPV [...] Signs Reading Time Taken Comments Vital Sign 110/61 01/12/2019 10:27 AM CDT Blood Pressure 72 01/12/2019 10:27 AM CDT Pulse 36.9 C (98.4 F) 01/12/2019 10:27 AM CDT Temperature 18 01/12/2019 10:27 AM CDT Respiratory Rate - - Oxygen Saturation - - Inhaled Oxygen Concentration 79.4 kg (175 lb) 01/12/2019 10:27 AM CDT Weight 162.6 cm (5' 4") 01/12/2019 10:27 AM CDT Height 30.04 01/12/2019 10:27 AM CDT Body Mass Index documented in this encounter Progress Notes * Adelia Sen - 01/12/2019 10:15 AM CDT Chief complaint: Chief Complaint Patient presents with Other HPI Here for 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 The patient is experiencing no pain. She is not . She uses abstinence for contraception. Her menstrual history has been regular. Her past medical history is significant for an STD. There is no history of PID or vaginosis. Patient reports not sexually active. Histories OB History Para Term AB [...] file Gets together: Not on file Attends restoration service: Not on file Active member of [...] Activity Yes Partners: Male control/protection: Condom Labs I have reviewed the patient's labs. Radiology No new radiology. Allergies Rosanne has No Known Allergies. Medications Rosanne has a current medication list which includes the following prescription(s ): azithromycin and nitrofurantoin&nit. macrocryst. Review of Systems Constitutional: Negative. Breasts: Negative. Gastrointestinal: Negative. Genitourinary: Negative. Skin: Negative. Neurological: Negative. Psychiatric/Behavioral: Negative. BP 110/61 | Pulse 72 | Temp 36.9 C (98.4 F) (Oral) | Resp 18 | Ht 5' 4" (1.626 m) | Wt 175 lb (79.4 kg) | BMI 30.04 kg/m Pregravid BMI: Could not be calculated Physical Exam Vitals reviewed. Constitutional: She is oriented to person, place, and time. She appears well-dev eloped and well-nourished. Pulmonary/Chest: Normal inspiratory effort. Neuro/Psychiatric: She has a normal mood and affect. She is oriented to person, place, and time. Skin: Skin normal. No lesion, no rash and no ulceration present. Assessment/Plan Encounter for surveillance of other contraceptive (primary encounter diagnosis) Comment: abstinence Plan: rtc prn Chlamydia trachomatis infection of lower genitourinary sites Comment: positive Plan: azithromycin (ZITHROMAX) 500 mg tablet, DISCONTINUED: azithromycin (ZITHROMAX) 500 mg Tablet Rx to pharmacy Safe sex This visit did not involve counseling and coordination that comprised more than 50% of the visit time. documented in this encounter Plan of Treatment Care Team Description Date Type Specialty Catherine Koch, MSN [address] [place] [address] [phone] 04/07/2019 Office Visit OB [facility] Health Maintenance Due Date Last Done Comments [...] this topic documented as of this encounter Results Not on filedocumented in this encounter Visit Diagnoses Diagnosis Encounter for surveillance of other contraceptive - Primary Chlamydia trachomatis infection of lower genitourinary sites documented in this encounter Insurance Type Payer Benefit Subscriber ID Effective Phone Address Plan / Dates Group Medicaid [place]OMEN [facility] xxxxxxxxx 2018-P [phone] [id number] [place] [address] documented as of this encounter
--- OUTSIDE RECORDS SUMMARY | 2019-08-03 20:46 | XMS REPORT | Summary of Care ---
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 Encounter Details Care Team Description Date Type Department Catherine Koch, MSN [address] [place] [address] Family planning counseling (Primary Dx); Well woman exam without gynecological exam; Screening examination for venereal disease; Dysuria; examination or test, negative result; Anxiety; Dysmenorrhea; Simple obesity 01/06/2019 Office Visit [facility] [address] [place] [address] Allergies No Known Allergiesdocumented as [...] Koch MSN - 01/06/2019 8:15 AM CDT Expressive Art Therapist packet documented in this encounter Progress Notes * Catherine Koch MSN - 01/06/2019 8:15 AM CDT Chief complaint: Chief Complaint 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 Performing Organization Address City/[facility]/Zipcode Phone Number [facility] CLIA: [id number], [address] [place] [address] [facility] * GC & CHLAMYDIA AMPLIFIED ASSAY (01/06/2019 10:55 AM CDT) Pathologist [facility] C. trachomatis CHLAMYDIA TRACHOMATIS DNA (A) Negative [facility] Nucleic Acid SERVICES N. gonorrhoeae NEGATIVE Negative [facility] Nucleic Acid SERVICES Specimen Urine - URINE, UNSPECIFIED SOURCE Performing Organization Address City/State/Zipcode Phone Number [facility] CLIA: [id number], [address] [place] [address] [facility] * CBC WITH DIFFERENTIAL (01/06/2019 10:54 AM CDT) WBC 6.77 4.30 - 11.10 [facility] 10*3/L SERVICES RBC 3.76 (L) 3.93 - 5.25 10*6/L [facility] HGB 11.0 (L) 11.6 - 15.0 g/dL [facility] HCT 35.6 (L) 35.7 - 45.2 % [facility] MCV 94.7 80.6 - 95.5 fL [facility] MCH 29.3 25.9 - 32.8 pg [facility] MCHC 30.9 (L) 31.6 - 35.1 g/dL [facility] RDW-SD 43.6 39.0 - 49.9 fL [facility] RDW-CV 12.5 12.0 - 15.5 % [facility] PLT 303 166 - 358 10*3/L [facility] MPV 10.7 9.5 - 12.9 fL [facility] NRBC/100 WBC 0.0 0.0 - [...] LEFT Performing Organization Address City/State/Zipcode Phone Number [facility] CLIA: [id number], [address] [place] [address] [facility] * GLYCOSYLATED HEMOGLOBIN (A1C) (01/06/2019 10:54 AM CDT) HGB A1C 4.6 4.0 - 6.0 % [facility] Specimen Blood - ARM, LEFT Performing Organization Address City/[facility] Phone Number [facility] CLIA: [id number], [address] [place] [address] [facility] * GALV ONLY - SYPHILIS IGG/IGM (01/06/2019 10:54 AM CDT) Syphilis Non-reactive Non-reactive [facility] IgG/IgM SERVICES Specimen Blood - ARM, LEFT Narrative Performed At Non-reactive - No serologic evidence of T. pallidum infection. Cannot exclude [facility] incubating or early syphilis. Submit a second specimen in 2-4 weeks if syphilis SERVICES is clinically suspected. Equivocal - Further testing to follow. Reactive - Further testing to follow. Performing Organization Address [facility] Centerconj Phone Number [facility] CLIA: [id number], [address] [place] [address] [facility] * HIV 1/2 AG-AB WITH REFLEX (01/06/2019 10:54 AM CDT) HIV 1/2 Ag-Ab Negative Negative [facility] with Reflex SERVICES HIV 0.07 [facility] Semi-quantitati SERVICES ve Specimen Blood - ARM, LEFT Narrative Performed At Non-reactive for HIV-1 antigen and HIV-1/HIV-2 antibodies.No laboratory [facility] evidence of HIV infection.Repeat in 2-4 weeks if acute HIV infection is SERVICES suspected. Performing Organization Address [facility] Centercode Phone Number [facility] CLIA: [id number], [address] [place] [address] [facility] * RUBELLA SCREEN IGG (01/06/2019 10:54 AM CDT) Rubella screen Positive Negative [facility] IgG SERVICES Specimen Blood - ARM, LEFT Narrative Performed At Positive - Indicates the patient was exposed to Rubella through infection or [facility] vaccination. SERVICES Negative - Indicates the patient could be susceptible to Rubella infection. Equivocal - A second specimen should be sent. Performing Organization Address City/State/Zipcode Phone Number [facility] CLIA: [id number], [address] [place] [address] [facility] * POCT TEST (01/06/2019 10:25 AM CDT) [...] Address Plan / Dates Group Medicaid HEALTHY [place] WOMEN [facility] xxxxxxxxx 2018-P [phone] [id number] [place] [address] documented as of this encounter
--- OUTSIDE RECORDS SUMMARY | 2019-08-03 20:46 | XMS REPORT | Summary of Care ---
Author Author [facility] - Health Organization [facility] - Health Address Unknown Phone Unavailable Care Team Providers Care Engineering Illustrator Name Role Phone Adelia Sen PCP Reason for Visit * Reason Comments Other Encounter Details Care Team Description Date Type Department Ad[facility] Sen [address] [facility] [address] [address] Encounter for surveillance of other contraceptive (Primary Dx); Chlamydia trachomatis infection of lower genitourinary sites 01/12/2019 Office Visit [facility] [address] [place] [address] Allergies No Known Allergiesdocumented as [...] treatment of chlamydia States no partner 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 The [...] file Gets together: Not on file Attends yazdanism service: Not on file Active member of [...] Date Type Specialty Catherine Koch, MSN [address] [place] [address] [phone] 04/07/2019 Office Visit OB [facility] Health Maintenance Due Date Last Done Comments [...] Address Plan / Dates Group Medicaid HEALTHY [place] WOMEN [facility] xxxxxxxxx 2018-P [phone] [id number] [place] [address] documented as of this encounter
--- OUTSIDE RECORDS SUMMARY | 2019-08-03 20:46 | XMS REPORT | Summary of Care ---
Author Author [facility] - Health Organization [facility] - Health Address Unknown Phone Unavailable Care Team Providers Care Brothel Keeper Name Role Phone Catherine Kohc MSN PCP Reason for Visit * Reason Comments UTI CHLAMYDIA Encounter Details Care Team Description Date Type Department Catherine Koch, MSN [address] [place] [address] UTI; CHLAMYDIA 01/09/2019 Telephone [facility] [address] [place] [address] Allergies No Known Allergiesdocumented as of this encounter (statuses as of 01/10/2019) Medications End Date Status Medication Sig Dispensed Refills Start Date Active Nitrofurantoin&Nit. Take 1 20 capsule 0 Macrocryst (MACROBID) 100 capsule by 9 mg capsuleIndications: mouth 2 (two) Dysuria times daily. documented as of this encounter (statuses as of 01/10/2019) Active Problems Problem Noted Date Chlamydia trachomatis infection of lower genitourinary sites 01/09/2019 Anxiety 01/09/2019 Dysmenorrhea 01/09/2019 Simple obesity 01/09/2019 documented as of this encounter (statuses as of 01/10/2019) Immunizations Name Administration Dates Next Due HPV [...] filedocumented in this encounter Plan of Treatment Care Team Description Date Type Specialty Adelia Sne [address] [facility] [address] [place], [place] [id number] 01/11/2019 Office Visit [facility] Catherine Koch, MSN [address] [facility] [place] [address] 04/07/2019 Office Visit [facility] Health Maintenance [...] Address Plan / Dates Group Medicaid [place]ALTH[place] WOMEN [facility] xxxxxxxxx 2018-P [phone] [id number] [place] [address] documented as of this encounter
--- OUTSIDE RECORDS SUMMARY | 2019-08-03 20:46 | XMS REPORT | Summary of Care ---
Author Author [facility] - Health Organization [facility] - Health Address Unknown Phone Unavailable Care Team Providers Care Radiator Mechanic Name Role Phone Catherine Koch MSN PCP Reason for Visit * Reason Comments UTI CHLAMYDIA Encounter Details Care Team Description Date Type Department Catherine Koch, MSN [address] [place] [address] UTI; CHLAMYDIA 01/09/2019 Telephone Count includes the [facility] [address] [place] [address] Allergies No Known Allergiesdocumented as [...] trachomatis infection of lower genitourinary sites 01/09/2019 documented as of this encounter (statuses as of 01/09/2019) Immunizations Name Administration Dates Next Due PPD (TB) 02/14/2018 Tdap 02/14/2018 documented as [...] Date Type Specialty Catherine Koch, MSN [address] [place], [place] [address] 04/07/2019 Office Visit [facility] Health Maintenance Due Date Last Done Comments HPV VACCINES (1 - Female 2009 3-dose series) PAP SMEAR 2015 INFLUENZA VACCINE 01/30/2019 CHLAMYDIA SCREENING 01/07/2020 01/06/2019 VARICELLA VACCINES (1 of 01/07/2020 Postponed from 2007 2 - 13+ 2-dose series) (Insurance / Financial) DTaP,Tdap,and Td Vaccines 02/15/2028 02/14/2018 (2 - Td) PNEUMOCOCCAL 0-64 YEARS Aged Out No longer eligible based COMBINED SERIES on patient's age to complete this topic documented as of this encounter Results Not on filedocumented in this encounter Insurance Type Payer Benefit Subscriber ID Effective Phone Address Plan / Dates Group Medicaid HEALTHY [place] WOMEN [facility] xxxxxxxxx 2018-P [phone] [id number] [place] [address] documented as of this encounter
--- OUTSIDE RECORDS SUMMARY | 2019-08-03 20:46 | XMS REPORT | Summary of Care ---
Author Author [facility] - Health Organization [facility] - Health Address Unknown Phone Unavailable Care Team Providers Care Frame Bander Name Role Phone Catherine Koch MSN PCP Reason for Visit * Reason Comments Notification med too pricey Refill Request Encounter Details Care Team Description Date Type Department Catherine Koch, MSN [address] [place] [address] Notification (med too pricey); Refill Request 01/06/2019 Telephone Replaced by [facility] [address] [place] [address] Allergies No Known Allergiesdocumented as of this encounter (statuses as of 01/06/2019) Medications End Date Status Medication Sig Dispensed Refills Start Date Active Nitrofurantoin&Nit. Take 1 20 capsule 0 Macrocryst (MACROBID) 100 capsule by 9 mg capsuleIndications: mouth 2 (two) Dysuria times daily. documented as of this encounter (statuses as of 01/06/2019) Active Problems Not on filedocumented as of this encounter (statuses as of 01/06/2019) Immunizations Name Administration Dates Next Due PPD [...] Date Type Specialty Catherine Koch, MSN [address] [place], [place] [address] 04/07/2019 Office Visit [facility] Health Maintenance Due Date Last Done Comments HPV VACCINES (1 - Female 2009 3-dose series) CHLAMYDIA SCREENING 2010 DTaP,Tdap,and Td Vaccines 2013 (1 - Tdap) PAP SMEAR 2015 INFLUENZA VACCINE 01/30/2019 VARICELLA VACCINES (1 of 01/07/2020 Postponed from 2007 2 - 13+ 2-dose series) (Insurance / Financial) PNEUMOCOCCAL 0-64 YEARS Aged Out No longer eligible based COMBINED SERIES on patient's age to complete this topic documented as of this encounter Results Not on filedocumented in this encounter Insurance Type Payer Benefit Subscriber ID Effective Phone Address Plan / Dates Group Medicaid [place]ALTH[place]OMEN [facility] xxxxxxxxx 2018-P [phone] [id number] [place] [address] documented as of this encounter
--- OUTSIDE RECORDS SUMMARY | 2019-08-03 20:47 | XMS REPORT | Summary of Care ---
Author Author [facility] - Health Organization [facility] - Health Address Unknown Phone Unavailable Care Team Providers Care Blade Sharpener Name Role Phone Adelia Sen PCP Reason for Visit * Reason Comments Assessment vag pain Encounter Details Care Team Description Date Type Department Adelia Sen [facility] [address] [address] Assessment (vag pain) 08/03/2019 Telephone [place] [address] [place] [address] Allergies No Known Allergiesdocumented as of this encounter (statuses as of 08/03/2019) Medications End Date Status Medication Sig Dispensed Refills Start Date Active norgestimate-ethinyl Take 1 tablet 4 Package 0 estradiol 0.18/0.215/0.25 by mouth 0 mg-25 mcg daily. tabletIndications: Surveillance of previously prescribed contraceptive pill documented as of this encounter (statuses as of 08/03/2019) Active Problems Problem Noted Date Chlamydia trachomatis infection of lower genitourinary sites 01/09/2019 Anxiety 01/09/2019 Dysmenorrhea 01/09/2019 Simple obesity 01/09/2019 documented as of this encounter (statuses as of 08/03/2019) Immunizations Name Administration Dates Next Due HPV [...] Last Done Comments VARICELLA VACCINES (1 of 01/07/2020 Postponed from 1995 2 - 2-dose childhood (Insurance / Financial) series) INFLUENZA VACCINE (#1) 2020 Postponed from 01/30/2019 (Refused) PAP SMEAR 07/04/2022 07/04/2019 DTaP,Tdap,and Td Vaccines 02/15/2028 02/14/2018 (2 - [...] Medicaid [place]ALTHY [place]OMEN [facility] xxxxxxxxx 2018-P [phone] [id number] [place] [address] documented as of this encounter
--- OUTSIDE RECORDS SUMMARY | 2019-08-03 20:47 | XMS REPORT | Summary of Care ---
Author Author [facility] - Health Organization [facility] - Health Address Unknown Phone Unavailable Care Team Providers Care Coating Technician Name Role Phone Adelia Sen PCP Reason for Visit * Reason Comments Assessment Encounter Details Care Team Description Date Type Department Adelia Sen [facility] [address] [place] [address] [place] [address] Assessment 08/03/2019 Telephone [place] [address] [place] [address] Allergies No Known Allergiesdocumented as [...] Address Plan / Dates Group Medicaid HEALTHY [place] WOMEN [facility]-RM[facility] xxxxxxxxx 2018-P [phone] [id number] [place] [address] documented as of this encounter
--- OUTSIDE RECORDS SUMMARY | 2019-08-03 20:47 | XMS REPORT | Summary of Care ---
Author Author [facility] - Health Organization [facility] - Health Address Unknown Phone Unavailable Care Team Providers Care Sizing Sprayer Name Role Phone Adelia Sen PCP Reason for Visit * Reason Comments Assessment vag pain Encounter Details Care Team Description Date Type Department Adelia Sen [facility] [address] [address] Assessment (vag pain) 08/03/2019 Telephone [place] [address] [place] [address] Allergies No Known Allergiesdocumented as [...] Medicaid [place]ALTH[place]OMEN [facility]-RM[facility] xxxxxxxxx 2018-P [phone] [id number] [place] [address] documented as of this encounter
--- OUTSIDE RECORDS SUMMARY | 2019-08-03 20:47 | XMS REPORT | Summary of Care ---
Author Author [facility] - Health Organization [facility] - Health Address Unknown Phone Unavailable Care Team Providers Care Patient Safety Sitter Name Role Phone Adelia Sen PCP Reason for Visit * Reason Comments Other Encounter Details Care Team Description Date Type Department Adelia Sen WHNP [address] [place] [address] Surveillance of previously prescribed contraceptive pill (Primary Dx); Screen for STD (sexually transmitted disease); Chlamydia trachomatis infection of lower genitourinary sites; Dysuria; Cervical smear, as part of routine gynecological examination 07/04/2019 Office Visit [place] [address] [place] [address] Allergies No Known Allergiesdocumented as [...] Comments Vital Sign 124/79 07/04/2019 8:41 AM PROFESSOR OF BIOLOGY Blood Pressure 68 07/04/2019 8:41 AM PROFESSOR OF BIOLOGY Pulse 37 C (98.6 F) 07/04/2019 8:41 AM PROFESSOR OF BIOLOGY Temperature 16 07/04/2019 8:41 AM PROFESSOR OF BIOLOGY Respiratory Rate - - Oxygen Saturation - - Inhaled Oxygen Concentration 83.5 kg (184 lb) 07/04/2019 8:41 AM PROFESSOR OF BIOLOGY Weight 152.4 cm (5') 07/04/2019 8:41 AM PROFESSOR OF BIOLOGY Height 35.94 07/04/2019 8:41 AM PROFESSOR OF BIOLOGY Body Mass Index documented in this encounter Patient Instructions * Patient Instructions* Antonio Alicia LVN - 07/04/2019 8:15 AM PROFESSOR OF BIOLOGY How Control Works control prevents by preventing [...] Thiago hagan reviewed this educational content on 07/30/201619997922-3130 [employer]. [address] [place] [address] 8587 7. All rights reserved. This information is [...] discuss the risks with your healthcare provider. [employer] last reviewed this educational content on 07/30/201619992237-7003 [employer]. [address] [place] [address] 4866 7. All rights reserved. This information is not intended as a substitute for pro fessional medical care. Always follow your healthcare professional's instruction s. 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 The [...] file Gets together: Not on file Attends bahai service: Not on file Active member of [...] Allergies Rosanne has No Known Allergies. Medications Roasnne has a current medication list which includes [...] more than 50% of the visit time. ESSOR [employer] BIOLOGY * Antonio Alicia LVN - 07/04/2019 8:15 AM PROFESSOR OF BIOLOGY Dispensed 4 pack of [employer] Sprinte[employer], Lot [id number], Exp- 05/20, Cont- 878-L Educated patient on [...] Sonya Seay MA - 07/04/2019 8:15 AM PROFESSOR OF BIOLOGY Patient presents for first pap. LMP 06/15/2019. [...] no discharge. Still has odor in urine. [employer]OR [employer] BIOLOGY documented in this encounter Plan of Treatment Date/Time Name Type Priority Associated Diagnoses 07/04/2019 9:34 AM PROFESSOR OF BIOLOGY LAB ONLY PAP SMEAR-LIQUID LAB Routine Cervical [...] Screen for STD (sexually IGG/IGM 9:34 AM PROFESSOR OF BIOLOGY transmitted disease) PAP SMEAR-LIQUID BASED-CP Routine 07/04/2019 Cervical smear, as part 9:34 AM PROFESSOR OF BIOLOGY of routine gynecological examination HIV 1/2 AG-AB WITH REFLEX Routine 07/04/2019 Screen for STD (sexually 9:34 AM PROFESSOR OF BIOLOGY transmitted disease) GC & CHLAMYDIA AMPLIFIED Routine 07/04/2019 Screen for STD (sexually ASSAY 9:34 AM PROFESSOR OF BIOLOGY transmitted disease) URINE CULTURE Routine 07/04/2019 Dysuria 9:34 AM PROFESSOR OF BIOLOGY documented in this encounter Results * GC & CHLAMYDIA AMPLIFIED ASSAY (07/04/2019 9:34 AM PROFESSOR OF BIOLOGY) C. trachomatis Negative Negative [facility] Nucleic Acid SERVICES N. gonorrhoeae Negative Negative [facility] Nucleic Acid SERVICES Specimen Swab - CERVIX Performing Organization Address City/State/Zipcode Phone Number [facility] CLIA: [id number], [address] [place] [address] [facility] * PAP Smear-Liquid Based (07/04/2019 9:34 AM PROFESSOR OF BIOLOGY) Specimen Swab - CERVIX Performing Organization Address City/State/Zipcode Phone Number [facility] CLIA: [id number], [address] [place] [phone] [facility] * URINE CULTURE (07/04/2019 9:34 AM PROFESSOR OF BIOLOGY) URINE CULTURE 10,000 - 100,000 CFU/mL mixed [facility] aerobic organisms - suggests SERVICES endogenous microbial contamination Specimen Urine - URINE, CLEAN CATCH Performing Organization Address City/[facility] Phone Number [facility] CLIA: [id number], [address] [place] [phone] [facility] * GALV ONLY - SYPHILIS IGG/IGM (07/04/2019 9:34 AM PROFESSOR OF BIOLOGY) Syphilis Non-reactive Non-reactive [facility] IgG/IgM SERVICES Specimen Blood - ARM, LEFT Narrative Performed At Non-reactive - No serologic evidence of T. pallidum infection. Cannot exclude [facility] incubating or early syphilis. Submit a second specimen in 2-4 weeks if syphilis SERVICES is clinically suspected. Equivocal - Further testing to follow. Reactive - Further testing to follow. Performing Organization Address [facility] Phone Number [facility] CLIA: [id number], [address] [place] [phone] [facility] * HIV 1/2 AG-AB WITH REFLEX (07/04/2019 9:34 AM PROFESSOR OF BIOLOGY) HIV 1/2 Ag-Ab Negative Negative [facility] with Reflex SERVICES HIV 0.07 [facility] Semi-quantitati SERVICES ve Specimen Blood - ARM, LEFT Narrative Performed At Non-reactive for HIV-1 antigen and HIV-1/HIV-2 antibodies. No laboratory [facility] evidence of HIV infection. Repeat in 2-4 weeks if acute HIV infection is SERVICES suspected. Performing Organization Address City/[facility] Phone Number [facility] CLIA: [id number], [address] [place] [phone] [facility] documented in this encounter Visit Diagnoses Diagnosis [...] Address Plan / Dates Group Medicaid [facility] xxxxxxxxx 2018-P [phone] [id number] [place] [address] documented as of this encounter"
== END 2019-08-03 20:45 | disposition left against medical advice (07) ==
LOC: ER 20:44
DX: R52 Pain, unspecified (principal)